=== PATIENT | male | born 1970 | race Caucasian/White ===

== ENCOUNTER 2024-03-08 14:42 | Outpatient (AMB) | payer OTHER, SELFPAY ==
[2024-03-08 14:44] VITALS: BP 124/72; PULSE 88; O2SAT 98; BMI 33.6
--- NOTE | 2024-03-08 14:44 | MHC.OFFWIV ---
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 Patient has been working outdoors He has been applying calamine lotion but that is not relieving the itch or the spread of the rash On examination left forearm he is developing blistering in a patch with some erythema That seems to be getting infected Review system reviews no fever no chills no shortness a breath, patient says that he has baseline mild wheezing because he smoke marijuana There is no chest pains no nausea no vomiting I am treating him with doxycycline b.i.d. for 7 days And Medrol Dosepak. Patient is to follow with the primary care after Review of Systems Const All systems reviewed & are unremarkable except as noted in HPI and below Physical Exam Vital Signs: Last Vital Signs Pulse 88 03/08/24 14:44 BP 124/72 03/08/24 14:44 Pulse Ox 98 03/08/24 14:44 Oxygen Delivery Method Room Air 03/08/24 14:44 BMI result Body Mass Index 33.6 Const General: no acute distress Orientation/consciousness: patient oriented x3 Eyes General: appearance normal, both eyes and all related structures Resp Effort & Inspection: normal respiratory effort and able to speak in complete sentences Auscultation: clear to auscultation bilaterally Cardio Other: S1 S2 Skin Full body images: 1. Extensive rash with blistering and erythema 2. New rash appearing the thigh Neuro General: patient oriented x3 Psych Mental Status: mental status grossly normal Assessment & Plan Assessment & Plan (1) Contact dermatitis: Code(s): L25.9 - Unspecified contact dermatitis, unspecified cause Qualifiers: Contact dermatitis trigger: non-food plants Contact dermatitis type: allergic Qualified Code(s): L23.7 - Allergic contact dermatitis due to plants, except food (2) Blistering rash: Code(s): R21 - Rash and other nonspecific skin eruption (3) Cellulitis: Code(s): L03.90 - Cellulitis, unspecified Qualifiers: Laterality: left Site of cellulitis: extremity Site of cellulitis of extremity: upper extremity Qualified Code(s): L03.114 - Cellulitis of left upper limb Plan Patient is a 53-year-old gentlemen who has developed a pruritic rash on his forearm which has now spread to his left leg and is extending over the thigh area. Patient has been working outdoors He has been applying calamine lotion but that is not relieving the itch or the spread of the rash On examination left forearm he is developing blistering in a patch with some erythema That seems to be getting infected Review system reviews no fever no chills no shortness a breath, patient says that he has baseline mild wheezing because he smoke marijuana There is no chest pains no nausea no vomiting I am treating him with doxycycline b.i.d. for 7 days And Medrol Dosepak. Patient is to follow with the primary care after Medications: New doxycycline hyclate 100 mg PO BID 14 tabs 0RF 7 days methylprednisolone (Medrol (Thai)) PO PER PKG DIR 21 ea 0RF 6 days Coding Level of Care Code New Pt Level 4 ([id number]) Diagnoses Allergic contact dermatitis due to plants, except food L23.7 Contact dermatitis trigger: non-food plants Contact dermatitis type: allergic Blistering rash R21 Cellulitis of left upper extremity L03.114 Laterality: left Site of cellulitis: extremity Site of cellulitis of extremity: upper extremity
== END 2024-03-08 15:18 | disposition home or self-care (01) ==
PROVIDERS: PCP Pediatrics; Visit Provider Internal Medicine
DX: L23.7 Allergic contact dermatitis due to plants, except food (principal); R21 Rash and other nonspecific skin eruption; L03.114 Cellulitis of left upper limb
CPT/HCPCS: 99204